=== PATIENT | female | born 1990 | race Caucasian/White ===

== ENCOUNTER 2016-12-03 06:30 | Emergency (ER) | payer OTHER ==
[~2016-12-03] VITALS: Ht 162.6 cm; Wt 95.3 kg
[~2016-12-03 06:30] MED LIST: FERROUS SULFATE27 MG; PRENATAL1 TA1; REGLAN10 M1
[2016-12-03 06:48] VITALS: BP 119/79
--- NOTE | 2016-12-03 06:57 | NUR ---
PT TAKEN TO BED 4
--- NOTE | 2016-12-03 07:03 | NUR ---
Dr. Perry evaluating patient at bedside.
[2016-12-03] MEDS ORDERED: HYDROcodone/APAP 5/325 MG 1 TAB TAB PO ONE (07:10)
--- NOTE | 2016-12-03 07:15 | NUR ---
PATIENT PRESENTS TO ED WITH CHEST PAIN FOR LAST 3 HOURS. DENIES N/V/D; SKIN IS PINK/WARM/DRY; AAOX4 WITH EVEN AND STEADY GAIT; LUNGS CLEAR BL; HR EVEN AND REGULAR; PT DENIES ANY FEVER, SOB, OR COUGH AT THIS TIME; PATIENT STATES PAIN OF 6/10 AT THIS TIME; VSS; PATIENT POSITIONED FOR COMFORT; HOB ELEVATED; BEDRAILS UP X2; BED DOWN. ER MD MADE AWARE OF PT STATUS.
[2016-12-03] MEDS ORDERED: IBUPROFEN 800 MG TAB PO ONE (07:20)
[2016-12-03 08:08] VITALS: BP 112/62
--- NOTE | 2016-12-03 08:08 | NUR ---
Patient discharged with v/s stable. Written and verbal after care instructions given and explained. Patient alert, oriented and verbalized understanding of instructions. Ambulatory with steady gait. All questions addressed prior to discharge. ID band removed. Patient advised to follow up with PMD. Rx of MOTRIN 600MG given. Patient educated on indication of medication including possible reaction and side effects. Opportunity to ask questions provided and answered.
== END 2016-12-03 08:08 | disposition home or self-care (01) ==
LOC: MED 06:30
DX: R07.89 Other chest pain (principal); R06.02 Shortness of breath